=== PATIENT | female | born 1960 | race Caucasian/White ===

== ENCOUNTER 2023-04-19 08:30 | Day surgery (SDC) | payer OTHER ==
[~2023-04-19] VITALS: Ht 152.4 cm; Wt 74.4 kg
[2023-04-19] VITALS (8 sets, daily range): BP systolic 117–137
[~2023-04-19 08:30] MED LIST: ROPIVACAINE HCL/PF 0.2% EPIDURAL 100 ML PLAST..BAG ONE; ROPIVACAINE HCL/PF 0.2% EPIDURAL 200 ML PLAST..BAG ONE
[2023-04-19] MEDS ORDERED: CEFAZOLIN 2 GM IVPB PREMIX 50 ML IV ONE (09:57)
[2023-04-19] MEDS ORDERED: BUPIVACAINE /PF 0.25% 30 ML VIAL INJ ONE (10:30)
[2023-04-19] MEDS ORDERED: FUROSEMIDE 40 MG/4 ML VIAL ONE (10:30)
[2023-04-19] MEDS ORDERED: KETOROLAC TROMETHAMINE 30 MG VIAL ONE (10:30)
[2023-04-19] MEDS ORDERED: MIDAZOLAM HCL 2 MG/2 ML VIAL (VERSED) ONE (10:30)
[2023-04-19] MEDS ORDERED: DEXAMETHASONE SOD PHOSPHATE 4 MG/ML VIAL ONE (10:30)
[2023-04-19] MEDS ORDERED: LR 1,000 ML IV.SOLN IV ONE (10:30)
[2023-04-19] MEDS ORDERED: [UNRECOGNIZED DRUG - OTHER] INJ ONE (10:30)
[2023-04-19] MEDS ORDERED: NS IRRIG SOLN 1000 ML IR ONE (10:30)
[2023-04-19] MEDS ORDERED: fentaNYL CITRATE/PF 100 MCG/2 ML AMP ONE (10:30)
[2023-04-19] MEDS ORDERED: WATER FOR IRRIGATION,STERILE 1,000 ML IRRIG.SOLN IR ONE (10:30)
[2023-04-19] MEDS ORDERED: LIDOCAINE 2%, 20 ML MDV ONE (10:30)
[2023-04-19] MEDS ORDERED: ROCURONIUM BROMIDE 10 MG/ML (ZEMURON) ONE (10:30)
[2023-04-19] MEDS ORDERED: PROPOFOL 200MG/ 20ML VIAL (DIPRIVAN) IV ONE (10:30)
[2023-04-19] MEDS ORDERED: DESFLURANE 15 MIN GAS INH ONE (10:30)
[2023-04-19] MEDS ORDERED: ONDANSETRON HCL 4 MG/2 ML VIAL ONE (10:30)
[2023-04-19] MEDS ORDERED: SUGAMMADEX SODIUM 200 MG/2 ML VIAL IV ONE (10:30)
[2023-04-19] MEDS: LR 1,000 ML IV SCH ×2 (11:30→23:45)
[2023-04-19] MEDS ORDERED: METOCLOPRAMIDE HCL 10 MG/2 ML VIAL IVP PRN (11:30)
[2023-04-19] MEDS ORDERED: LABETALOL 100 MG/ 20ML VIAL IVP PRN (11:30)
[2023-04-19] MEDS ORDERED: MEPERIDINE HCL/PF 25 MG/ML DISP.SYRIN IVP PRN (11:30)
[2023-04-19] MEDS ORDERED: HYDROmorphone 1 MG/ML INJ. CARTRIDGE IVP PRN ×3 (11:30→14:45)
[2023-04-19] MEDS ORDERED: hydrALAZINE HCL 20 MG/ML VIAL IVP PRN (11:30)
[2023-04-19] MEDS ORDERED: ACETAMINOPHEN I.V. 1000 MG 100 ML IV ONE (11:51)
[2023-04-19] MEDS ORDERED: HYDROcodone/ACETAMIN 5-325 MG TAB (NORCO/ VICODIN) PO PRN (12:45)
[2023-04-19] MEDS ORDERED: OXYCODONE/ACETAMINOPHEN 5-325 TABLET PO PRN ×2 (12:45)
[2023-04-19] MEDS: HYDROmorphone 1 MG/ML INJ. CARTRIDGE ONE ×4 (13:25→13:55)
[2023-04-19] MEDS ORDERED: METOCLOPRAMIDE HCL 10 MG/2 ML VIAL ONE (14:12)
[2023-04-19] MEDS ORDERED: KETOROLAC TROMETHAMINE 30 MG VIAL IM ONE (14:30)
[2023-04-19] MEDS ORDERED: HYDROmorphone 2 MG/ML VIAL IVP PRN (14:45)
--- NOTE | 2023-04-19 15:02 | NUR ---
ADMISSION NOTE Received patient from [facility] via gurney. Patient admitted with diagnosis of S/P Robotic Lap,Hysterectomy,Bso,Ludowici,Cystoscopy. With small incision x4 with steri strips on.On Q pump @ pump @ 10cc/h,intact.Patient is awake, alert, oriented X 2-3. Patient oriented to hospital room, call light, toileting, pain management and safety-teach back done. Patient informed that I will be her nurse and that their room number is 124-A. Personal belongings checked and Belongings List documented. Call light within reach.Family at the bedside.Post op routine vital signs taken,afebrile.Stable.
--- NOTE | 2023-04-19 17:21 | NUR ---
RN ROUNDS: PATIENT SLEEPING DURING ROUNDS. AT THE BEDSIDE. NO COMPLAINED MADE.
--- NOTE | 2023-04-19 19:00 | NUR ---
EVENING ROUNDS: PATIENT RESTING. FAMILY AT THE BEDSIDE. WILL ENDORSED TO INCOMING NIGHT NURSE. NAUSEOUS EARLIER. WILL MONITOR THE PATIENT.
[2023-04-19] MEDS: ONDANSETRON HCL 4 MG/2 ML VIAL IVP PRN (20:28)
--- NOTE | 2023-04-19 20:28 | NUR ---
Zofran Patient reporting nausea; administered Zofran as ordered. Reviewed side effects and she verbalized understanding. Provided emesis bag. IVF connected to IVP and infusing as ordered. Patient reports she did not eat after midnight for surgery and has not had any food today. She did try drinking water earlier, though didn't drink much due to nausea.
--- NOTE | 2023-04-19 23:45 | NUR ---
IVF IVF is empty (LR) and hung new bag of LR . It is fusing at 100ml/hr, infusing well, no s/sx of infiltration. Patient reports has not eaten food since midnight to prepare for surgery and did not eat today, on had a small sip of water.
[2023-04-20] VITALS: BP_SYST 127
--- NOTE | 2023-04-20 02:09 | NUR ---
c/o pain Patient reporting abdominal pain which is sharp/severe on right and on right shoulder. She was assisted to sitting position and did not tolerated, retuned resting position. Administered Percocet as ordered, She swallowed the tablets with water and ate one cup of jello. Resting on left side with pillow support to back.
[2023-04-20] MEDS: ONDANSETRON HCL 4 MG/2 ML VIAL IVP PRN (07:15)
--- NOTE | 2023-04-20 07:15 | NUR ---
Zofran; n/v Patient experiencing nausea and vomiting (100ml clear emesis); administered Zofran as ordered. Reviewed side effects and she verbalized understanding. Provided emesis bag.
--- NOTE | 2023-04-20 07:30 | NUR ---
MORNING ROUNDS; PATIENT AWAKE,WITH AT THE BEDSIDE.NAUSEOUS,IV ZOFRAN WAS JUST GIVEN IN THE MORNING. IV FLUIDS RUNNING AT RIGHT AC INTACT.WITH STERI STRIPS X4 SMALL INCISION,INTACT.NO ACTIVE BLEEDING NOTED.CALL LIGHT WITH IN REACH. CONTINUE TO MONITOR.
[2023-04-20 08:23] VITALS: BP_SYST 137
--- NOTE | 2023-04-20 10:20 | NUR ---
RN ROUNDS: PATIENT ASSISTED BY SITTING ON THE BED. STILL NAUSEOUS.NO DUE MEDS.
[2023-04-20] MEDS: LR 1,000 ML IV SCH ×2 (11:18→21:37)
[2023-04-20 12:09] VITALS: BP_SYST 140
--- NOTE | 2023-04-20 14:15 | NUR ---
FRANCIS DC: FRANCIS DISCONTINUED ORDERED. WITH NO PROBLEM.
--- NOTE | 2023-04-20 15:38 | NUR ---
OB GYNE PAGED: CALLED DR. Mark GUZMAN AND WILL SEE PATIENT LATER.
[2023-04-20 17:45] VITALS: BP_SYST 148
--- NOTE | 2023-04-20 19:10 | NUR ---
EVENING ROUNDS: ENDORSED TO NIGHT NURSE IN STABLE CONDITION. ON Q PUMP INTACT AT RIGHT ABDOMEN. WITH ABDOMINAL BINDER ON.PATIENT NEEDS TO URINATE PRIOR TO DISCHARGE. OB GYNE TO CLEAR PATIENT FOR DISCHARGE HOME.
--- NOTE | 2023-04-20 19:15 | NUR ---
RECEIVED REPORT ON PATIENT FROM ERIC, ASSUMED CARE, AND STARTED ASSESSMENT.
[2023-04-20 20:00] VITALS: BP_SYST 154
[2023-04-21 00:09] VITALS: BP_SYST 128
--- NOTE | 2023-04-21 07:16 | NUR ---
REPORT GIVEN TO CHARLENE MALLOY, AND CARE WAS TURNED OVER TO HER.
[2023-04-21 07:35] VITALS: BP_SYST 155
--- NOTE | 2023-04-21 08:05 | NUR ---
Opening Nurse Notes: Patient laying in bed. A/O x 3, patient speaks Serbian. Patient breathing even on room air. No pain, no distress, no SOB. Bed is locked in lowest position. Call light within reach, all needs met, will continue with plan of care.
[2023-04-21 11:30] VITALS: BP_SYST 157
--- NOTE | 2023-04-21 12:05 | NUR ---
Afternoon Nurse Notes: Patient in bed in stable condition. No pain, moderate distress, no SOB. Bed is locked in lowest position. Call light within reach, all needs met, will continue with plan of care.
[2023-04-21 13:07] VITALS: BP_SYST 157
== END 2023-04-21 16:09 | disposition home or self-care (01) ==
LOC: SDS 08:30 → SMU 08:32 → SDS 04-21 16:09
PROVIDERS: ATTEND Specialist
DX: N95.0 Postmenopausal bleeding (principal); D25.1 Intramural leiomyoma of uterus; N85.8 Other specified noninflammatory disorders of uterus; I10 Essential (primary) hypertension; N84.1 Polyp of cervix uteri; Z79.899 Other long term (current) drug therapy
CPT/HCPCS: 87081; 58554; 64488; 86886; 86900; 86901; 36415; 88307; J3490 ×2; J0690; J1100; J1940; J1885; J2001; J2765; J3465; J2405 ×2; J2704; J2795; J3010; J1170; J7120; C1727; J0131; S2900